=== PATIENT | female | born 1985 | race Caucasian/White ===

== ENCOUNTER 2022-11-11 10:48 | Inpatient (IN) | payer OTHER ==
[2022-11-11] MEDS ORDERED: Ondansetron PF 4 MG/2 ML Vial IVP PRN ×2 (10:54→15:36)
[2022-11-11] MEDS ORDERED: hydrALAZINE 20 MG/ML VIAL SLOW IVP PRN ×2 (10:54→20:16)
[2022-11-11] MEDS ORDERED: Zolpidem Tartrate 5 MG TAB PO PRN (10:54)
[2022-11-11] MEDS ORDERED: Promethazine HCl 25 MG/ML VIAL IM PRN ×2 (10:54→15:36)
[2022-11-11] MEDS ORDERED: Acetaminophen 500 MG TAB PO PRN (10:54)
[2022-11-11] MEDS ORDERED: NS w/ Oxytocin 30 units 500 ML IV SCH (11:00)
[2022-11-11 12:14] VITALS: BMI 30.1
[2022-11-11 12:15] LABS: Hemoglobin 12.9 g/dL (12.0-15.5); Mean Corpuscular HGB CONC 33.6 g/dL (32.0-36.0); Mean Corpuscular Hemoglobin 29.9 pg (27.0-33.0); Mean Corpuscular Volume 88.9 fl (81.6-98.3); Mean Platelet Volume 9.8 fl (7.4-10.4); Platelet Count 270 10x3/uL (150-450); RBC Distribution Width 13.3 % (11.5-14.5); Red Blood Cell (RBC) Count 4.32 10x6/uL (3.90-5.03); White Blood Cell (WBC) Count 8.2 10x3/uL (3.5-10.5)
[2022-11-11 12:41] LABS: HBSAg Index 0.13 S/CO (0-0.99); HIV (1/2) Antibody/Antigen Non-Reactive (NonReactive); HIV 1/2 INDEX 0.08 S/CO (<1.00); Hep B Surf Ag - L&D Non-Reactive S/CO (NonReactive)
[2022-11-11 12:42] LABS: Syphilis Antibody Nonreactive (Nonreactive); Syphilis Antibody Index 0.02 S/CO (<1.00 Non-Reactive)
[2022-11-11] MEDS ORDERED: CEFAZOLIN 2 GM VIAL ONE (13:42)
[2022-11-11] MEDS ORDERED: Famotidine/PF 20 mg/2ml Vial ONE (13:43)
[2022-11-11] MEDS: Lactated Ringer's 1,000 ML IV SCH ×2 (13:43→20:40)
[2022-11-11] MEDS ORDERED: Morphine PF 10 MG/10 ML VIAL ONE (14:00)
[2022-11-11] MEDS ORDERED: Ondansetron PF 4 MG/2 ML Vial ONE (14:00)
[2022-11-11] MEDS ORDERED: ePHEDrine Sulfate 50 MG/10 ML VIAL ONE (14:00)
[2022-11-11] MEDS ORDERED: Oxytocin 10 UNITS/ML VIAL ONE (14:00)
[2022-11-11] MEDS ORDERED: Ketorolac Tromethamine 30 MG/ML VIAL ONE (14:00)
[2022-11-11] MEDS ORDERED: PHENYLEPHRINE-NS 100 MCG/ML 10 ML SYRINGE ONE (14:00)
[2022-11-11] MEDS ORDERED: Phenylephrine 40 MG/NS 250 ML 250 ML ONE (14:00)
[2022-11-11] MEDS ORDERED: Ondansetron HCl/PF 4 MG/2 ML Vial IVP PRN (15:36)
[2022-11-11] MEDS ORDERED: Fentanyl 100 MCG/2 ML VIAL SLOW IVP PRN (15:36)
[2022-11-11] MEDS ORDERED: diphenhydrAMINE 50 MG/ML VIAL IVP PRN (15:36)
[2022-11-11] MEDS ORDERED: Moisturizing Cream (Eucerin) 113 GM JAR TOP PRN (15:36)
[2022-11-11] MEDS ORDERED: Naloxone HCl 0.4 mg/ml Vial IV PRN (15:36)
[2022-11-11] MEDS ORDERED: Ketorolac Tromethamine 30 MG/ML VIAL IVP PRN (15:36)
[2022-11-11] MEDS ORDERED: HYDROmorphone 2 MG/ML VIAL SLOW IVP PRN (15:36)
[2022-11-11] MEDS ORDERED: Meperidine HCl/PF 25 MG/ML VIAL SLOW IVP PRN (15:36)
[2022-11-11] MEDS ORDERED: Promethazine HCl 25 MG SUPP PR PRN (15:36)
[2022-11-11] MEDS ORDERED: Naloxone HCl 0.4 mg/ml Vial IVP PRN ×2 (15:36)
[2022-11-11] MEDS ORDERED: Communication Order-Pharmacy FS SCH (15:45)
[2022-11-11] MEDS ORDERED: Ketorolac Tromethamine 30 MG/ML VIAL IVP SCH (15:45)
[2022-11-11] MEDS ORDERED: Misoprostol 200 MCG TAB PR PRN (20:16)
[2022-11-11] MEDS ORDERED: Boostrix 0.5 ML (Tdap) VIAL (>/=7 yrs of age) IM ONE (20:16)
[2022-11-11] MEDS ORDERED: diphenhydrAMINE 25 MG CAP PO PRN (20:16)
[2022-11-11] MEDS ORDERED: Acetaminophen 325 MG TAB PO PRN (20:16)
[2022-11-11] MEDS ORDERED: Methylergonovine 0.2 MG/ML VIAL IM PRN (20:16)
[2022-11-11] MEDS: Docusate 100 MG CAP PO SCH (20:45)
[2022-11-12 03:54] LABS: Hemoglobin 11.1 g/dL (12.0-15.5); Mean Corpuscular HGB CONC 33.3 g/dL (32.0-36.0); Mean Platelet Volume 9.5 fl (7.4-10.4); Platelet Count 248 10x3/uL (150-450); RBC Distribution Width 13.2 % (11.5-14.5); White Blood Cell (WBC) Count 11.1 10x3/uL (3.5-10.5)
[2022-11-12] MEDS: Lactated Ringer's 1,000 ML IV SCH ×3 (05:40→20:38)
[2022-11-12] MEDS: Simethicone Chewable 80 MG TAB PO PRN (09:05)
[2022-11-12] MEDS: Docusate 100 MG CAP PO SCH ×2 (09:06→21:39)
[2022-11-12] MEDS: Prenatal Vitamin 1 TAB PO SCH (09:06)
[2022-11-12] MEDS: HYDROcodone/Acetaminophen 5/325 mg Tablet PO PRN ×3 (09:06→17:58)
[2022-11-12] MEDS: Polyethylene Glycol 3350 17 GM Packet PO SCH (09:07)
[2022-11-12] MEDS: Ibuprofen 800 MG TAB PO SCH (21:39)
[2022-11-13] MEDS: HYDROcodone/Acetaminophen 5/325 mg Tablet PO PRN ×2 (02:18→12:13)
[2022-11-13] MEDS: Ibuprofen 800 MG TAB PO SCH ×2 (05:29→12:04)
[2022-11-13 08:04] VITALS: BP 108/73; TEMP 97.7
[2022-11-13] MEDS: Prenatal Vitamin 1 TAB PO SCH (08:27)
[2022-11-13] MEDS: Docusate 100 MG CAP PO SCH (08:27)
[2022-11-13] MEDS: Polyethylene Glycol 3350 17 GM Packet PO SCH (08:29)
[2022-11-13] MEDS: Simethicone Chewable 80 MG TAB PO PRN (12:14)
== END 2022-11-13 14:30 | disposition home or self-care (01) | DRG 788 ==
LOC: CSHLD 10:48 → CSHPP 19:45
PROVIDERS: ADMIT Obstetrics & Gynecology; ATTEND Obstetrics & Gynecology
PROC: 10D00Z1 Extraction of Products of Conception, Low, Open Approach (ICD-10-PCS; principal; 2022-11-11)
DX: O60.14X0 Preterm labor third trimester with preterm delivery third trimester, not applicable or unspecified (principal); O34.211 Maternal care for low transverse scar from previous cesarean delivery; Z3A.36 36 weeks gestation of pregnancy; Z37.0 Single live birth; Z88.2 Allergy status to sulfonamides; Z88.8 Allergy status to other drugs, medicaments and biological substances
CPT/HCPCS: 36415; 51702; 85027; 86780; 86850; 86900; 86901; 87340; 87389; 99285; J1885; J2274; J2405; J2590; J7120; S0028

== ENCOUNTER 2025-07-05 13:02 | Outpatient (CLI) | payer OTHER | END 2025-07-05 13:03 | disposition home or self-care (01) | LOC: CSHMAMMO 13:02 | PROVIDERS: ATTEND Obstetrics & Gynecology | DX: Z12.31 Encounter for screening mammogram for malignant neoplasm of breast (principal); N64.89 Other specified disorders of breast; R92.333 Mammographic heterogeneous density, bilateral breasts | CPT/HCPCS: 77063; 77067 ==